=== PATIENT | female | born 1960 | race African-American/Black ===

== ENCOUNTER 2022-03-15 08:33 | Emergency (ER) | payer OTHER ==
[2022-03-15] MEDS ORDERED: NORCO 5-325 TA1 EACH PO (10:57)
[2022-03-15] MEDS ORDERED: MELOXICAM15 MG PO (10:58)
== END 2022-03-15 11:45 | disposition home or self-care (01) ==
LOC: FER 08:33
DX: S32.018A Other fracture of first lumbar vertebra, initial encounter for closed fracture (principal); S32.028A Other fracture of second lumbar vertebra, initial encounter for closed fracture; I10 Essential (primary) hypertension; F17.210 Nicotine dependence, cigarettes, uncomplicated; W01.0XXA Fall on same level from slipping, tripping and stumbling without subsequent striking against object, initial encounter; Y92.009 Unspecified place in unspecified non-institutional (private) residence as the place of occurrence of the external cause
CPT/HCPCS: 72131; 72192